=== PATIENT | female | born 1990 | race Caucasian/White ===

== ENCOUNTER → 2025-09-12 | Outpatient (CLI) | payer OTHER ==
[~2025-09-12] MED LIST: PROHANCE 279.3MG/ML 15ML VIAL As Ordered ONE; PROHANCE 279.3MG/ML 5ML VIAL As Ordered ONE
== END ==
LOC: M RAD 10:42
PROVIDERS: ATTEND Family Medicine
DX: R59.0 Localized enlarged lymph nodes (principal); R59.1 Generalized enlarged lymph nodes
CPT/HCPCS: 70543; A9579

== ENCOUNTER → 2025-10-12 | Outpatient (CLI) | payer OTHER ==
[2025-10-12 17:37] LABS: BASO # 0.0 10^3/uL (0.0-0.2); BASO % 0.3 % (0.0-1.0); EOS # 0.1 10^3/uL (0.0-0.5); EOS % 1.4 % (0.0-3.0); LYMPH # 2.6 10^3/uL (1.5-5.0); LYMPH % 26.4 % (24.0-44.0); MONO # 0.9 10^3/uL (0.0-0.8); MONO % 8.6 % (2.0-8.0); NEUTROPHILS # 6.2 10^3/uL (1.5-8.5); NEUTROPHILS % 63.0 % (36.0-66.0); PLATELET COUNT, AUTOMATED 349 10^3/uL (150-450)
[2025-10-12 17:39] LABS: C REACTIVE PROTEIN QUANTITATIV 1.17 MG/DL (<1.0)
[2025-10-12 18:13] LABS: HEPATITIS C VIRUS ABY INDEX 0.10 INDEX (<0.8)
[2025-10-14 23:49] LABS: HEPATITIS B CORE ANTIBODY IGG NON-REACTIVE (NON-REACTIVE)
[2025-10-15 12:42] LABS: FREE KAPPA LIGHT CHAINS SERUM 26.5 mg/L (3.3-19.4); FREE LAMBDA LIGHT CHAINS SERUM 18.9 mg/L (5.7-26.3); KAPPA/LAMBDA RATIO SERUM 1.40 (0.26-1.65)
[2025-10-15 16:33] LABS: CYTOMEGALOVIRUS ANTIBODY IGG 7.40 U/mL (<0.60); CYTOMEGALOVIRUS IgM ANTIBODY < 30.00 AU/mL (<30.00)
== END ==
LOC: M LABDRWAD 13:12
PROVIDERS: ATTEND Internal Medicine Hematology & Oncology
DX: R59.0 Localized enlarged lymph nodes (principal)